=== PATIENT | female | born 1995 | race American Indian/Alaskan Native ===

== ENCOUNTER 2017-11-09 14:38 | Emergency (ER) | payer OTHER ==
[2017-11-09 15:01] VITALS: TEMP 99.1
[2017-11-09 15:22] VITALS: RESP 18; O2SAT 98
[2017-11-09] MEDS ORDERED: Sodium Chloride 0.9% 1,000 ML IV STA (15:39)
--- NOTE | 2017-11-09 15:40 | ED PDOC ---
Arrival/HPI - General Chief Complaint: Abdominal Pain Time Seen by Provider: 11/09/17 15:19 Historian: Patient - History of Present Illness Narrative History of Present Illness (Text): 11/09/17 15:35 A 22 year old female presents to the emergency department complaining of nausea and 1 episode of vomiting (2 days ago). Patient reports her symptoms began shortly after eating a chicken sandwich at [employer] 2 days ago. Patient notes generalized fatigue and mild abdominal cramping but denies any fever, chills, urinary symptoms, vaginal bleeding, vaginal discharge, chest pain, shortness of breath or any other complaints. Patients last menstrual period was on Oct 29. 11/09/17 19:02 Time/Duration: Other (2 days) Symptom Course: Unchanged Quality: Other Context: Home Past Medical History - Provider Review Nursing Documentation Reviewed: Yes - Infectious Disease Hx of Infectious Diseases: None - Reproductive Menopause: No - Cardiac Hx Hypotension: Yes - Integumentary Hx Dermatological Disorder: No - Musculoskeletal/Rheumatological Hx Musculoskeletal Disorders: No - Psychiatric Hx Substance Use: No Family/Social History - Physician Review Nursing Documentation Reviewed: Yes Family/Social History: No Known Family HX Smoking Status: Unknown If Ever Smoked Hx Alcohol Use: No Hx Substance Use: No Allergies/Home Meds Allergies/Adverse Reactions: Allergies No Known Allergies Allergy (Verified 11/09/17 15:01) Home Medications: Home Meds Medication Instructions Recorded Confirmed Losartan [Cozaar] 0 mg PO DAILY 11/09/17 11/09/17 amLODIPine [Norvasc] 10 mg PO DAILY 11/09/17 11/09/17 Review of Systems - Physician Review All systems were reviewed & negative as marked: Yes - Review of Systems Constitutional: Fatigue. absent: Fevers, Night Sweats Respiratory: absent: SOB Cardiovascular: absent: Chest Pain Gastrointestinal: Abdominal Pain, Diarrhea, Nausea, Vomiting. absent: Constipation Genitourinary Female: absent: Dysuria, Frequency, Hematuria, Urine Output Changes, Vaginal Bleeding, Vaginal Discharge Physical Exam Vital Signs Reviewed: Yes Vital Signs Temp Pulse Resp BP Pulse Ox 11/09/17 17:00 74 18 115/71 98 11/09/17 15:22 99.1 F 79 18 117/76 98 11/09/17 14:56 99.1 F 79 16 117/76 99 Temperature: Afebrile Blood Pressure: Normal Pulse: Regular Respiratory Rate: Normal Appearance: Positive for: Well-Appearing, Non-Toxic, Comfortable Pain Distress: None Mental Status: Positive for: Alert and Oriented X 3 - Systems Exam Head: Present: Atraumatic, Normocephalic Pupils: Present: PERRL Extroacular Muscles: Present: EOMI Conjunctiva: Present: Normal Mouth: Present: Moist Mucous Membranes Neck: Present: Normal Range of Motion Respiratory/Chest: Present: Clear to Auscultation, Good Air Exchange. No: Respiratory Distress, Accessory Muscle Use Cardiovascular: Present: Regular Rate and Rhythm, Normal S1, S2. No: Murmurs Abdomen: Present: Normal Bowel Sounds. No: Tenderness, Distention, Peritoneal Signs Back: Present: Normal Inspection Upper Extremity: Present: Normal Inspection. No: Cyanosis, Edema Lower Extremity: Present: Normal Inspection. No: Edema Neurological: Present: GCS=15, CN II-XII Intact, Speech Normal Skin: Present: Warm, Dry, Normal Color. No: Rashes Psychiatric: Present: Alert, Oriented x 3, Normal Insight, Normal Concentration Medical Decision Making ED Course and Treatment: 11/09/17 15:35 Impression: A 22 year old female with generalized fatigue and nausea. Patient notes 1 episode of vomiting and abdominal cramping. Well appearing with soft NT/ND abdomen. Plan: -- Labs -- Urinalysis -- Pepcid, Toradol, Zofran and IV fluids -- Reassess and disposition Progress Notes: 11/09/17 17:33 Patient is not . UA WNL. Labs grossly normal. On reevaluation, patient reports that she feels better. Abdomen continues to be soft NT/ND. She is tolerating po and will follow-up with PMD - Lab Interpretations Lab Results: 11/09/17 16:00 11/09/17 16:00 Lab Results 11/09/17 16:00: Sodium 139, Potassium 4.2, Chloride 102, Carbon Dioxide 27, Anion Gap 14, BUN 15, Creatinine 0.7, Est GFR ( Amer) > 60, Est GFR (Non- Af Amer) > 60, Random Glucose 91, Calcium 9.3, Phosphorus 3.2, Magnesium 2.4 H, Total Bilirubin 0.4, AST 38 H, ALT 26, Alkaline Phosphatase 60, Total Protein 7.8, Albumin 4.4, Globulin 3.5, Albumin/Globulin Ratio 1.3, Lipase 67 11/09/17 16:00: WBC 4.4 L, RBC 4.50, Hgb 13.2, Hct 39.8, MCV 88.4, MCH 29.3, MCHC 33.2, RDW 12.3, Plt Count 188, MPV 10.1, Gran % 63.4, Lymph % (Auto) 26.2, [place] % (Auto) 7.7 H, Eos % (Auto) 2.5, Baso % (Auto) 0.2, Gran # 2.81, Lymph # 1.2, [place] # 0.3, Eos # 0.1, Baso # 0.01 11/09/17 15:15: Urine Color Yellow, Urine Appearance Clear, Urine pH 6.0, Ur Specific [place] 1.020, Urine Protein Trace H, Urine Glucose (UA) Negative, Urine Ketones Trace H, Urine Blood Negative, Urine Nitrate Negative, Urine Bilirubin Negative, Urine Urobilinogen 4.0 H, Ur Leukocyte Esterase Negative, Urine RBC Negative, Urine WBC 2 - 5, Ur Epithelial Cells 3 - 4, Urine Bacteria Few I have reviewed the lab results: Yes - Medication Orders Current Medication Orders: Discontinued Medications Famotidine (Pepcid) 20 mg IVP STAT STA Stop: 11/09/17 15:40 Last Admin: 11/09/17 16:02 Dose: 20 mg IVP Administration Document 11/09/17 16:02 HI (Rec: 11/09/17 16:02 [id number]) Charges for Administration # of IVP Administrations 1 Sodium Chloride (Sodium Chloride 0.9%) 1,000 mls @ 1,000 mls/hr IV .Q1H STA Stop: 11/09/17 16:38 Last Admin: 11/09/17 16:02 Dose: 1,000 mls/hr eMAR Start Stop Document 11/09/17 16:02 HI (Rec: 11/09/17 16:02 [id number]) Intravenous Solution Start Date 11/09/17 Start Time 16:02 Ketorolac Tromethamine (Toradol) 30 mg IVP STAT STA Stop: 11/09/17 15:40 Last Admin: 11/09/17 16:02 Dose: 30 mg MAR Pain Assessment Document 11/09/17 16:02 HI (Rec: 11/09/17 16:02 [id number]) Pain Reassessment Is this a pain reassessment? No Sleep Is patient sleeping during reassessment? No Presence of Pain Presence of Pain Yes Location Pain Location Body Site Abdomen IVP Administration Document 11/09/17 16:02 HI (Rec: 11/09/17 16:02 [id number]) Charges for Administration # of IVP Administrations 1 Ondansetron HCl (Zofran Inj) 4 mg IVP STAT STA Stop: 11/09/17 15:40 Last Admin: 11/09/17 16:02 Dose: 4 mg IVP Administration Document 11/09/17 16:02 HI (Rec: 11/09/17 16:02 [id number]) Charges for Administration # of IVP Administrations 1 - Scribe Statement The provider has reviewed the documentation as recorded by the Scribe Lacey Tatum Provider Scribe Attestation: All medical record entries made by the Scribe were at my direction and personally dictated by me. I have reviewed the chart and agree that the record accurately reflects my personal performance of the history, physical exam, medical decision making, and the department course for this patient. I have also personally directed, reviewed, and agree with the discharge instructions and disposition. Disposition/Present on Arrival - Present on Arrival Any Indicators Present on Arrival: No History of DVT/PE: No History of Uncontrolled Diabetes: No Urinary Catheter: No History of Decub. Ulcer: No History Surgical Site Infection Following: None - Disposition Have Diagnosis and Disposition been Completed?: Yes Diagnosis: Nausea Disposition: HOME/ ROUTINE Disposition Time: 17:34 Patient Plan: Discharge Condition: GOOD Additional Instructions: Follow-up with PMD within 2 days. Return to ED if condition worsens. Referrals: Chris Nam MD [Primary Care Provider] - Follow up with primary Forms: [employer] (Greenlandic)
[2017-11-09 16:10] LABS: BASO # 0.01 K/mm3 (0.0-2.0); BASO % 0.2 % (0.0-3.0); EOS # 0.1 (0.0-0.7); EOS % 2.5 % (1.5-5.0); GRAN # 2.81 (1.4-6.5); GRAN % 63.4 % (50.0-68.0); HEMATOCRIT 39.8 % (36.0-48.0); LYMPH # 1.2 (1.2-3.4); LYMPH % 26.2 % (22.0-35.0); MEAN CELL VOLUME 88.4 fl (80.0-105.0); MEAN CORPUSCULAR HEMOGLOBIN 29.3 pg (25.0-35.0); MEAN CORPUSCULAR HGB CONC 33.2 g/dl (31.0-37.0); MEAN PLATELET VOLUME 10.1 fl (7.0-11.0); MONO # 0.3 (0.1-0.6); MONO % 7.7 % (1.0-6.0); RED CELL DISTRIBUTION WIDTH 12.3 % (11.5-14.5); WHITE BLOOD COUNT 4.4 10^3/ul (4.5-11.0)
[2017-11-09 16:15] LABS: URINE BILIRUBIN NEGATIVE (NEGATIVE); URINE BLOOD NEGATIVE (NEGATIVE); URINE GLUCOSE (UA) NEGATIVE (NEGATIVE); URINE KETONE TRACE mg/dL (NEGATIVE); URINE LEUKOCYTE ESTERASE NEGATIVE Leu/uL (NEGATIVE); URINE PROTEIN TRACE mg/dL (<30 mg/dL)
[2017-11-09 16:21] LABS: ALB/GLOB RATIO 1.3 (1.1-1.8); ALKALINE PHOSPHATASE 60 U/L (38-126); ALT/SGPT 26 U/L (7-56); AST/SGOT 38 U/L (14-36); BILIRUBIN,TOTAL 0.4 mg/dL (0.2-1.3); BLOOD UREA NITROGEN 15 mg/dL (7-21); CALCIUM 9.3 mg/dL (8.4-10.5); CARBON DIOXIDE 27 mmol/L (21-33); CHLORIDE 102 mmol/L (98-107); GFR AFRICAN-AMERICAN > 60; GLUCOSE,RANDOM 91 mg/dL (70-110); LIPASE 67 U/L (23-300); MAGNESIUM 2.4 mg/dL (1.7-2.2); PHOSPHOROUS 3.2 mg/dL (2.5-4.5); POTASSIUM 4.2 mmol/L (3.6-5.0); SODIUM 139 mmol/L (132-148); TOTAL PROTEIN 7.8 g/dL (5.8-8.3)
[2017-11-09 16:26] LABS: URINE APPEARANCE CLEAR (CLEAR); URINE COLOR YELLOW (YELLOW)
[2017-11-09 16:33] LABS: URINE BACTERIA FEW (NEG); URINE RBC NEGATIVE /hpf (0-2)
[2017-11-09 17:29] VITALS: BP 115/71; PULSE 74
== END 2017-11-09 17:35 | disposition home or self-care (01) ==
LOC: MERGE 14:38 → ED 14:38
DX: R11.0 Nausea (principal)
CPT/HCPCS: 80053; 81001; 83690; 83735; 84100; 85025; 96374; 96375; 99284; J1885; J2405; J7040

== ENCOUNTER 2018-07-05 16:50 | Emergency (ER) | payer OTHER ==
--- NOTE | 2018-07-05 17:30 | ED PDOC ---
Arrival/HPI - General Chief Complaint: Female Genitourinary Time Seen by Provider: 07/05/18 17:30 Historian: Patient - History of Present Illness Narrative History of Present Illness (Text): 07/05/18 17:30 This 22 yo female with pmh Hypertension, presents to this emergency department for dysuria x 3 days. Patient feels she has a "bladder infection", but she would like to be check for STD, since she is sexually active. Patient noted a small white vaginal discharge. Denies flank pain, urgency, fever, shortness of breath, chest pain, n/v, dizziness, or abnormal gait. Time/Duration: Other (see hpi) Context: Home Past Medical History - Provider Review Nursing Documentation Reviewed: Yes - Infectious Disease Hx of Infectious Diseases: None - Cardiac Hx Hypotension: Yes - Integumentary Hx Dermatological Disorder: No - Musculoskeletal/Rheumatological Hx Musculoskeletal Disorders: No - Psychiatric Hx Substance Use: No Family/Social History - Physician Review Nursing Documentation Reviewed: Yes Family/Social History: Other (noncontributory) Smoking Status: Unknown If Ever Smoked Hx Alcohol Use: No Hx Substance Use: No Allergies/Home Meds Allergies/Adverse Reactions: Allergies No Known Allergies Allergy (Verified 07/05/18 17:25) Home Medications: Home Meds Medication Instructions Recorded Confirmed Losartan [Cozaar] 0 mg PO DAILY 11/09/17 07/05/18 amLODIPine [Norvasc] 10 mg PO DAILY 11/09/17 07/05/18 Review of Systems - Review of Systems Constitutional: Normal. absent: Fatigue, Weight Change, Fevers, Night Sweats Eyes: Normal ENT: Normal Respiratory: Normal. absent: SOB, Cough Cardiovascular: Normal. absent: Chest Pain Gastrointestinal: Normal. absent: Abdominal Pain, Nausea, Vomiting Genitourinary Female: Dysuria, Vaginal Discharge. absent: Frequency, Hematuria , Urine Output Changes, Vaginal Bleeding Musculoskeletal: Normal Skin: Normal. absent: Rash Neurological: Normal. absent: Headache, Dizziness Endocrine: Normal Hemo/Lymphatic: Normal Psychiatric: Normal Physical Exam Vital Signs Temp Pulse Resp BP Pulse Ox 07/05/18 17:24 98.3 F 83 17 113/68 97 Temperature: Afebrile Blood Pressure: Normal Pulse: Regular Respiratory Rate: Normal Appearance: Positive for: Well-Appearing, Non-Toxic, Comfortable Pain Distress: None Mental Status: Positive for: Alert and Oriented X 3 - Systems Exam Head: Present: Atraumatic, Normocephalic Pupils: Present: PERRL Extroacular Muscles: Present: EOMI Conjunctiva: Present: Normal Mouth: Present: Moist Mucous Membranes Neck: Present: Normal Range of Motion Respiratory/Chest: Present: Clear to Auscultation, Good Air Exchange. No: Respiratory Distress, Accessory Muscle Use Cardiovascular: Present: Regular Rate and Rhythm, Normal S1, S2. No: Murmurs Abdomen: No: Tenderness, Distention, Peritoneal Signs, Rebound, Guarding Back: Present: Normal Inspection. No: CVA Tenderness Upper Extremity: Present: Normal Inspection. No: Cyanosis, Edema Lower Extremity: Present: Normal Inspection. No: Edema Neurological: Present: GCS=15, CN II-XII Intact, Speech Normal, Motor Func Grossly Intact, Normal Sensory Function, Normal Cerebellar Funct, Gait Normal, Memory Normal Skin: Present: Warm, Dry, Normal Color. No: Rashes Psychiatric: Present: Alert, Oriented x 3, Normal Insight, Normal Concentration Medical Decision Making ED Course and Treatment: 07/05/18 18:15 Re-evaluation. Patient feels better. Discussed results and plan with patient who expresses understanding. All questions answered and there is agreement with the plan to discharge home with instructions. Patient stable for discharge. Return if symptoms persist or worsen. Patient was recommended to follow up [facility] doctor or PMD in 1-2 days. Return to emergency department if symptoms worsen. Re-evaluation Time: 18:15 Reassessment Condition: Re-examined, Improved - Lab Interpretations Lab Results: Lab Results 07/05/18 17:24: Urine Color Yellow, Urine Appearance Clear, Urine pH 6.0, Ur Specific [place] >= 1.030, Urine Protein Negative, Urine Glucose (UA) Negative, Urine Ketones Negative, Urine Blood Negative, Urine Nitrate Negative, Urine Bilirubin Negative, Urine Urobilinogen 0.2, Ur Leukocyte Esterase Negative, Urine HCG, Qual Negative - Medication Orders Current Medication Orders: Discontinued Medications Azithromycin (Zithromax) 1,000 mg PO STAT STA PRN Reason: Protocol Stop: 07/05/18 17:57 Ceftriaxone Sodium (Rocephin) 250 mg IM STAT STA PRN Reason: Protocol Stop: 07/05/18 17:56 Disposition/Present on Arrival - Present on Arrival Any Indicators Present on Arrival: No History of DVT/PE: No History of Uncontrolled Diabetes: No Urinary Catheter: No History of Decub. Ulcer: No History Surgical Site Infection Following: None - Disposition Have Diagnosis and Disposition been Completed?: Yes Diagnosis: Dysuria Disposition: HOME/ ROUTINE Disposition Time: 18:16 Patient Plan: Discharge Condition: GOOD Discharge Instructions (ExitCare): Dysuria, Adult (DC) Additional Instructions: Call private doctor for follow up visit in 1-2 days. Take medication as instructed. Do not drink alcohol while taking antibiotics. Return to emergency if symptoms worsen. Prescriptions: Fluconazole [Diflucan] 150 mg PO DAILY #1 tab Metronidazole [Flagyl] 2,000 mg PO DAILY #4 tablet Referrals: Perry Nam DO [Primary Care Provider] - Follow up with primary Forms: [facility] ([place]ian), WORK NOTE
[2018-07-05 17:48] LABS: URINE BILIRUBIN NEGATIVE (NEGATIVE); URINE BLOOD NEGATIVE (NEGATIVE); URINE GLUCOSE (UA) NEGATIVE (NEGATIVE); URINE LEUKOCYTE ESTERASE NEGATIVE Leu/uL (NEGATIVE); URINE PROTEIN NEGATIVE mg/dL (<30 mg/dL); URINE UROBILINOGEN 0.2 E.U./dL (<1 E.U./dL)
[2018-07-05 17:51] LABS: HCG,QUALITATIVE URINE NEGATIVE (NEGATIVE); URINE APPEARANCE CLEAR (CLEAR); URINE COLOR YELLOW (YELLOW)
[2018-07-05] MEDS ORDERED: cefTRIAXone (Rocephin) 250 mg Inj IM STA (17:55)
[2018-07-05 19:26] VITALS: BP 118/62; PULSE 71; RESP 18; TEMP 98; O2SAT 100
== END 2018-07-05 19:26 | disposition home or self-care (01) ==
LOC: ED 16:50
DX: R30.0 Dysuria (principal); I10 Essential (primary) hypertension
CPT/HCPCS: 81003; 84703; 87086; 87491; 87591; 96372; 99283; J0696